=== PATIENT | female | born 1995 | race African-American/Black ===

== ENCOUNTER 2018-04-18 22:04 | Inpatient (IN) | payer MEDICAID ==
[~2018-04-18] VITALS: Ht 167.6 cm; Wt 95.8 kg
[2018-04-18] MEDS: LACTATED RINGERS 1,000 ML IV SCH (23:50)
[2018-04-19 00:18] LABS: CLARITY URINE CLEAR (CLEAR); COLOR URINE YELLOW (YELLOW); KETONES URINE NEGATIVE (NEGATIVE); LEUKOCYTE ESTERASE URINE 1+ (NEGATIVE); NITRITE URINE NEGATIVE (NEGATIVE); OCCULT BLOOD URINE NEGATIVE (NEGATIVE); PROTEIN URINE 2+ (NEGATIVE); SPECIFIC GRAVITY URINE 1.014 (1.005-1.030); UROBILINOGEN URINE 0.2 E.U./dL (0.2-1.0)
[2018-04-19] MEDS: LABETALOL HCL 20MG/4ML CARPUJECT IV SCH ×2 (00:24→01:05)
[2018-04-19 00:38] LABS: BASOPHILS % 0.6 % (0.0-2.0); EOSINOPHILS % 1.9 % (0.0-5.0); HEMATOCRIT. 30.1 % (36.0-48.0); HEMOGLOBIN. 9.9 g/dL (12.0-16.0); LYMPHOCYTES % 21.7 % (20.0-50.0); MEAN CORPUSCULAR HEMOGLOBIN 27.9 pg (28.0-32.0); MEAN CORPUSCULAR VOLUME 85.1 fL (81.0-99.0); NEUTROPHILS % 63.8 % (40.0-76.0); PLATELET 228 x1000/uL (130-400); RED BLOOD CELL COUNT 3.54 mill/uL (4.2-5.4); RED CELL DISTRIBUTION WIDTH 17.3 % (11.6-14.6)
[2018-04-19 00:41] LABS: *BARBITURATES SCREEN URINE NEGATIVE (NEGATIVE)
[2018-04-19 00:42] LABS: *AMPHETAMINES SCREEN URINE NEGATIVE (NEGATIVE); *BENZODIAZEPINES SCREEN URINE NEGATIVE (NEGATIVE); *COCAINE SCREEN URINE NEGATIVE (NEGATIVE); METHADONE URINE SCREEN NEGATIVE (NEGATIVE); OPIATES URINE SCREEN NEGATIVE (NEGATIVE)
[2018-04-19 00:43] LABS: CANNABINOID URINE SCREEN NEGATIVE (NEGATIVE); PHENCYCLIDINE URINE SCREEN NEGATIVE (NEGATIVE)
[2018-04-19 00:48] LABS: CHLORIDE 107 mEq/L (98-107)
[2018-04-19 00:58] LABS: D-DIMER 2.19 mg/L FEU (<0.50); PARTIAL THROMBOPLASTIN TIME 28.7 sec (23.4-31.0); PROTHROMBIN TIME 10.1 sec (9.1-11.1)
[2018-04-19] MEDS ORDERED: ACETAMINOPHEN 500MG TABLET PO ONE (02:00)
[2018-04-19] MEDS ORDERED: MAGNESIUM 4 G PREMIX 100 ML IV ONE (02:00)
[2018-04-19] MEDS ORDERED: AMPICILLIN 2,000 MG in SODIUM CHLORIDE 0.9% 100 ML IV SCH (02:30)
[2018-04-19] MEDS: LACTATED RINGERS 1,000 ML IV SCH ×3 (02:49→23:55)
[2018-04-19] MEDS: BETAMETHASONE ACET/BETAMET 30 MG/5 ML VIAL IM SCH (03:13)
[2018-04-19] MEDS ORDERED: LABETALOL HCL 20MG/4ML CARPUJECT IV ONE (03:30)
[2018-04-19] MEDS ORDERED: ONDANSETRON HCL 4MG/2ML INJ IM ONE (03:30)
[2018-04-19] MEDS: MAGNESIUM 20 G PREMIX (L & D) 500 ML IV SCH ×2 (06:14→13:18)
[2018-04-19 07:10] LABS: HEPATITIS B SURFACE ANTIGEN NEGATIVE; RUBELLA IGG 122.6 IU/mL (4.99-10)
[2018-04-19] MEDS ORDERED: VALACYCLOVIR HCL 500MG TABLET PO SCH (09:00)
[2018-04-19] MEDS: AMPICILLIN 1,000 MG in SODIUM CHLORIDE 0.9% 50 ML IV SCH ×3 (11:36→23:55)
[2018-04-19] MEDS: LABETALOL HCL 100MG TABLET PO SCH (14:23)
[2018-04-19 18:12] LABS: BASOPHILS % 0.1 % (0.0-2.0); HEMATOCRIT. 30.3 % (36.0-48.0); HEMOGLOBIN. 9.7 g/dL (12.0-16.0); LYMPHOCYTES % 7.7 % (20.0-50.0); MEAN CORPUSCULAR HEMOGLOBIN 27.2 pg (28.0-32.0); MEAN PLATELET VOLUME 9.5 fl (7.4-10.4); NEUTROPHILS % 87.2 % (40.0-76.0); PLATELET 243 x1000/uL (130-400); RED BLOOD CELL COUNT 3.56 mill/uL (4.2-5.4); RED CELL DISTRIBUTION WIDTH 17.3 % (11.6-14.6)
[2018-04-19 18:18] LABS: CHLORIDE 106 mEq/L (98-107)
[2018-04-19 18:23] LABS: D-DIMER 1.84 mg/L FEU (<0.50); INR 0.9; PARTIAL THROMBOPLASTIN TIME 24.4 sec (23.4-31.0); PROTHROMBIN TIME 9.4 sec (9.1-11.1)
[2018-04-20] MEDS: LABETALOL HCL 100MG TABLET PO SCH ×3 (00:10→21:42)
[2018-04-20] MEDS: BETAMETHASONE ACET/BETAMET 30 MG/5 ML VIAL IM SCH (03:22)
[2018-04-20] MEDS: AMPICILLIN 1,000 MG in SODIUM CHLORIDE 0.9% 50 ML IV SCH ×2 (05:23→11:35)
[2018-04-20] MEDS: MAGNESIUM 20 G PREMIX (L & D) 500 ML IV SCH ×2 (10:29)
[2018-04-20] MEDS: LACTATED RINGERS 1,000 ML IV SCH (12:47)
[2018-04-20 20:15] VITALS: BP 176/98
[2018-04-20 21:42] VITALS: BP 180/87
[2018-04-21] VITALS (23 sets, daily range): BP systolic 120–192; BP diastolic 73–106
[2018-04-21] MEDS ORDERED: NIFEDIPINE 10MG CAPSULE PO NR ×2 (00:30→22:15)
[2018-04-21] MEDS: LABETALOL HCL 100MG TABLET PO SCH ×2 (08:37→21:11)
[2018-04-21] MEDS: ACETAMINOPHEN 325MG TABLET PO PRN ×2 (13:29→21:12)
[2018-04-21] MEDS ORDERED: ACETAMINOPHEN 325MG TABLET PO NR (15:30)
[2018-04-21 19:36] LABS: BASOPHILS % 0.3 % (0.0-2.0); EOSINOPHILS % 0.6 % (0.0-5.0); HEMATOCRIT. 29.4 % (36.0-48.0); HEMOGLOBIN. 9.3 g/dL (12.0-16.0); LYMPHOCYTES % 15.7 % (20.0-50.0); MEAN CORPUSCULAR HEMOGLOBIN 27.3 pg (28.0-32.0); MEAN CORPUSCULAR VOLUME 86.1 fL (81.0-99.0); MEAN PLATELET VOLUME 9.5 fl (7.4-10.4); MONOCYTES % 12.4 % (2.0-8.0); PLATELET 254 x1000/uL (130-400); RED BLOOD CELL COUNT 3.42 mill/uL (4.2-5.4); RED CELL DISTRIBUTION WIDTH 17.3 % (11.6-14.6)
[2018-04-21 19:40] LABS: CHLORIDE 108 mEq/L (98-107)
[2018-04-21] MEDS: MAGNESIUM 20 G PREMIX (L & D) 500 ML IV SCH (23:47)
[2018-04-22] MEDS: MAGNESIUM 20 G PREMIX (L & D) 500 ML IV SCH ×2 (08:06→18:13)
[2018-04-22] MEDS: LABETALOL HCL 100MG TABLET PO SCH ×2 (10:50→22:06)
[2018-04-22] MEDS: LACTATED RINGERS 1,000 ML IV SCH (12:56)
[2018-04-22] MEDS ORDERED: NIFEDIPINE 10MG CAPSULE PO NR (13:15)
[2018-04-22] MEDS ORDERED: DINOPROSTONE 10MG VAGINAL INSERT VG ONE (14:15)
[2018-04-23] MEDS: LACTATED RINGERS 1,000 ML IV SCH ×3 (02:55→16:23)
[2018-04-23] MEDS: MAGNESIUM 20 G PREMIX (L & D) 500 ML IV SCH ×2 (04:33→14:25)
[2018-04-23] MEDS: MISOPROSTOL 100MCG TABLET VG PRN ×4 (09:34→22:21)
[2018-04-23] MEDS: LABETALOL HCL 100MG TABLET PO SCH ×2 (09:36→22:21)
[2018-04-24] MEDS: MISOPROSTOL 100MCG TABLET VG PRN ×5 (02:00→22:40)
[2018-04-24] MEDS: MAGNESIUM 20 G PREMIX (L & D) 500 ML IV SCH ×3 (04:26→21:35)
[2018-04-24] MEDS: LACTATED RINGERS 1,000 ML IV SCH (05:54)
[2018-04-24] MEDS: LABETALOL HCL 100MG TABLET PO SCH ×2 (09:00→22:40)
[2018-04-24 17:53] LABS: HEMATOCRIT 33.1 % (36.0-48.0); HEMOGLOBIN 10.5 g/dL (12.0-16.0); MEAN CORPUSCULAR HEMOGLOBIN 26.9 pg (28.0-32.0); MEAN CORPUSCULAR VOLUME 84.6 fL (81.0-99.0); PLATELET 299 x1000/uL (130-400); RED BLOOD CELL COUNT 3.91 mill/uL (4.2-5.4); RED CELL DISTRIBUTION WIDTH 17.2 % (11.6-14.6)
[2018-04-24 17:58] LABS: INR 0.9; PARTIAL THROMBOPLASTIN TIME 28.9 sec (23.4-31.0); PROTHROMBIN TIME 9.2 sec (9.1-11.1)
[2018-04-25] MEDS: MISOPROSTOL 100MCG TABLET VG PRN (07:14)
[2018-04-25] MEDS: MAGNESIUM 20 G PREMIX (L & D) 500 ML IV SCH ×2 (07:31→17:56)
[2018-04-25] MEDS: LACTATED RINGERS 1,000 ML IV SCH ×2 (09:40→12:20)
[2018-04-25] MEDS: LABETALOL HCL 100MG TABLET PO SCH ×3 (09:41→21:47)
[2018-04-25] MEDS ORDERED: DEXT 5%/LR + PITOCIN 20UNITS/L 1,000 ML IV SCH (10:15)
[2018-04-25] MEDS ORDERED: NALOXONE HCL 0.4 MG/ML 1ML VIAL IM PRN (10:15)
[2018-04-25] MEDS ORDERED: CARBOPROST TROMETHAMINE 250 MCG/ML AMPUL IM PRN (10:15)
[2018-04-25] MEDS ORDERED: BUPIVACAINE HCL/NS/PF EPIDURAL 100 ML EP ONE ×2 (10:54→18:13)
[2018-04-25] MEDS ORDERED: BUPIVACAINE HCL/PF 0.25% (2.5MG/ML) 10ML ONE (10:54)
[2018-04-25] MEDS ORDERED: FENTANYL CITRATE/PF 50MCG/ML 2ML VIAL ONE ×2 (10:55→18:13)
[2018-04-25] MEDS ORDERED: BUPIVACAINE HCL/NS/PF EPIDURAL 100 ML EP SCH (11:15)
[2018-04-25 11:22] LABS: BASOPHILS % 0.3 % (0.0-2.0); EOSINOPHILS % 1.1 % (0.0-5.0); HEMATOCRIT. 32.1 % (36.0-48.0); HEMOGLOBIN. 10.2 g/dL (12.0-16.0); LYMPHOCYTES % 13.1 % (20.0-50.0); MEAN CORPUSCULAR HEMOGLOBIN 26.8 pg (28.0-32.0); MEAN CORPUSCULAR VOLUME 84.7 fL (81.0-99.0); MEAN PLATELET VOLUME 9.3 fl (7.4-10.4); MONOCYTES % 12.4 % (2.0-8.0); NEUTROPHILS % 73.1 % (40.0-76.0); PLATELET 296 x1000/uL (130-400); RED BLOOD CELL COUNT 3.79 mill/uL (4.2-5.4); RED CELL DISTRIBUTION WIDTH 17.3 % (11.6-14.6)
[2018-04-25 11:31] LABS: INR 0.9; PARTIAL THROMBOPLASTIN TIME 28.4 sec (23.4-31.0)
[2018-04-25] MEDS ORDERED: HYDRALAZINE 20MG/ML VIAL IV NR (14:30)
[2018-04-25] MEDS ORDERED: LIDOCAINE HCL/PF 2% 20MG/ML 5 ML/VIAL ONE ×2 (19:31→21:42)
[2018-04-26] MEDS ORDERED: BUPIVACAINE HCL/NS/PF EPIDURAL 100 ML EP ONE ×3 (00:32→14:38)
[2018-04-26] MEDS ORDERED: LIDOCAINE HCL/PF 2% 20MG/ML 5 ML/VIAL ONE ×5 (00:32→14:38)
[2018-04-26] MEDS ORDERED: FENTANYL CITRATE/PF 50MCG/ML 2ML VIAL ONE ×3 (00:33→14:38)
[2018-04-26] MEDS: LACTATED RINGERS 1,000 ML IV SCH (05:59)
[2018-04-26] MEDS ORDERED: PENICILLIN G POTASSIUM 5 MMU in DEXT 5% WATER 100 ML IV SCH (09:30)
[2018-04-26] MEDS: LABETALOL HCL 100MG TABLET PO SCH ×2 (10:02→21:09)
[2018-04-26] MEDS ORDERED: PENICILLIN G POTASSIUM 2.5 MMU in DEXTROSE 5% WATER 50 ML IV SCH (13:30)
[2018-04-26] MEDS: MAGNESIUM 20 G PREMIX (L & D) 500 ML IV SCH (14:19)
[2018-04-26] MEDS: DEXT 5%/LR + PITOCIN 20UNITS/L 1,000 ML IV SCH (16:26)
[2018-04-26] MEDS ORDERED: IBUPROFEN 800MG TABLET PO PRN (16:45)
[2018-04-26] MEDS ORDERED: ACETAMINOPHEN WITH CODEINE 300/30MG TABLET PO PRN (16:45)
[2018-04-26] MEDS ORDERED: GLYCERIN/WITCH HAZEL LEAF MEDICATED PAD TOP PRN (16:45)
[2018-04-26] MEDS ORDERED: TETANUS, DIPHTHERIA, PERTUSSIS VAC/PF 0.5ML (>7YR OLD) IM ONE (16:45)
[2018-04-26] MEDS ORDERED: DIPHENHYDRAMINE 25MG CAPSULE PO PRN (16:45)
[2018-04-26] MEDS ORDERED: LANOLIN OINT 0.25 GM TUBE TOP PRN (16:45)
[2018-04-26] MEDS ORDERED: RHO(D) IMMUNE GLOBULIN 300 MCG/SYR IM PRN (16:45)
[2018-04-26] MEDS ORDERED: IBUPROFEN 400MG TABLET PO PRN (16:45)
[2018-04-26] MEDS ORDERED: BENZOCAINE/LANOLIN/ALOE VERA SPRAY TOP PRN (16:45)
[2018-04-26] MEDS ORDERED: MAGNESIUM 20 G PREMIX (L & D) 500 ML IV SCH (17:14)
[2018-04-26] MEDS ORDERED: MISOPROSTOL 200MCG TABLET RC NR (17:22)
[2018-04-26] MEDS ORDERED: GENTAMICIN SULFATE 150 MG in SODIUM CHLORIDE 0.9% 100 ML IV NR (18:00)
[2018-04-26 18:03] LABS: HEMATOCRIT. 28.2 % (36.0-48.0); HEMOGLOBIN. 9.1 g/dL (12.0-16.0); MEAN CORPUSCULAR HEMOGLOBIN 27.1 pg (28.0-32.0); MEAN CORPUSCULAR VOLUME 83.8 fL (81.0-99.0); MEAN PLATELET VOLUME 9.1 fl (7.4-10.4); PLATELET 259 x1000/uL (130-400); RED BLOOD CELL COUNT 3.36 mill/uL (4.2-5.4); RED CELL DISTRIBUTION WIDTH 17.9 % (11.6-14.6)
[2018-04-26] MEDS: AMPICILLIN 2,000 MG in SODIUM CHLORIDE 0.9% 100 ML IV SCH (18:19)
[2018-04-26 18:53] LABS: PLATELET ESTIMATE NORMAL
[2018-04-26 18:54] VITALS: BP 144/94
[2018-04-26 20:00] VITALS: BP 143/90
[2018-04-26] MEDS: DOCUSATE SODIUM 100MG CAPSULE PO SCH (21:09)
[2018-04-27] VITALS (8 sets, daily range): BP systolic 119–150; BP diastolic 77–97
[2018-04-27] MEDS: AMPICILLIN 2,000 MG in SODIUM CHLORIDE 0.9% 100 ML IV SCH ×4 (00:35→19:08)
[2018-04-27] MEDS: DEXT 5%/LR + PITOCIN 20UNITS/L 1,000 ML IV SCH ×4 (01:26→16:39)
[2018-04-27] MEDS: GENTAMICIN 120MG PREMIX 100 ML IV SCH ×3 (01:58→17:30)
[2018-04-27] MEDS: MAGNESIUM 20 G PREMIX (L & D) 500 ML IV SCH (03:31)
[2018-04-27 06:50] LABS: BASOPHILS % 0.3 % (0.0-2.0); EOSINOPHILS % 0.8 % (0.0-5.0); HEMATOCRIT. 25.1 % (36.0-48.0); HEMOGLOBIN. 8.1 g/dL (12.0-16.0); LYMPHOCYTES % 10.1 % (20.0-50.0); MEAN CORPUSCULAR HEMOGLOBIN 27.5 pg (28.0-32.0); MEAN CORPUSCULAR VOLUME 84.9 fL (81.0-99.0); MEAN PLATELET VOLUME 9.3 fl (7.4-10.4); MONOCYTES % 8.3 % (2.0-8.0); NEUTROPHILS % 80.5 % (40.0-76.0); PLATELET 246 x1000/uL (130-400); RED BLOOD CELL COUNT 2.96 mill/uL (4.2-5.4); RED CELL DISTRIBUTION WIDTH 17.3 % (11.6-14.6)
[2018-04-27 07:29] LABS: CHLORIDE 106 mEq/L (98-107)
[2018-04-27] MEDS: LABETALOL HCL 100MG TABLET PO SCH ×2 (09:00→21:30)
[2018-04-27] MEDS: PRENATAL VIT/FE FUMARATE/FA TABLET PO SCH (09:21)
[2018-04-27] MEDS: FERROUS SULFATE 325MG TABLET PO SCH ×2 (13:33→17:30)
[2018-04-27] MEDS: DOCUSATE SODIUM 100MG CAPSULE PO SCH (21:30)
[2018-04-28] MEDS: AMPICILLIN 2,000 MG in SODIUM CHLORIDE 0.9% 100 ML IV SCH ×2 (00:04→05:47)
[2018-04-28] MEDS: GENTAMICIN 120MG PREMIX 100 ML IV SCH ×2 (01:10→09:59)
[2018-04-28 04:00] VITALS: BP 114/66
[2018-04-28] MEDS: FERROUS SULFATE 325MG TABLET PO SCH (07:40)
[2018-04-28 08:00] VITALS: BP 133/77
[2018-04-28] MEDS: PRENATAL VIT/FE FUMARATE/FA TABLET PO SCH (09:12)
[2018-04-28] MEDS: LABETALOL HCL 100MG TABLET PO SCH (09:13)
[2018-04-28 11:11] VITALS: BP 133/77
[2018-04-28] MEDS ORDERED: MEDROXYPROGESTERONE ACETATE 150MG/ML VIAL IM NR (11:30)
[2018-04-28 12:00] VITALS: BP 125/71
[2018-04-28] MEDS ORDERED: MISOPROSTOL 200MCG TABLET ONE (13:46)
== END 2018-04-28 12:55 | disposition home or self-care (01) | DRG 560 ==
LOC: L&D 22:04 → 7EST PP/OB 04-20 20:01 → OBSVTOIN 04-20 20:15 → L&D 04-21 23:05 → 8WST 04-26 19:10
PROVIDERS: ADMIT Obstetrics & Gynecology; ATTEND Obstetrics & Gynecology
PROC: 10E0XZZ Delivery of Products of Conception, External Approach (ICD-10-PCS; principal; 2018-04-26 16:21)
DX: O13.4 Gestational [pregnancy-induced] hypertension without significant proteinuria, complicating childbirth (principal); D64.9 Anemia, unspecified; Z37.0 Single live birth; O99.02 Anemia complicating childbirth; O76 Abnormality in fetal heart rate and rhythm complicating labor and delivery; Z3A.32 32 weeks gestation of pregnancy; O69.81X0 Labor and delivery complicated by cord around neck, without compression, not applicable or unspecified
CPT/HCPCS: 36415; 76805; 76815; 76818; 80053; 80170; 80305; 81003; 82575; 83735; 84156; 84550; 85025; 85027; 85379; 85384; 85610; 85730; 86592; 86703; 86762; 86850; 86900; 87070; 87106; 87205; 87340; C1893; G0378; J0290; J0360; J0702; J1050; J1580; J2540; J2590; J3010; J3475; J3490; J7050; J7060; J7120; A4315

== ENCOUNTER 2019-05-11 00:55 | Emergency (ER) | payer MEDICAID ==
[~2019-05-11] VITALS: Ht 167.6 cm; Wt 91.0 kg
[2019-05-11 02:02] VITALS: BP 115/61
== END 2019-05-11 02:05 | disposition home or self-care (01) ==
LOC: ER 00:55
DX: H65.91 Unspecified nonsuppurative otitis media, right ear (principal); R09.81 Nasal congestion; R09.89 Other specified symptoms and signs involving the circulatory and respiratory systems
CPT/HCPCS: 99283

== ENCOUNTER 2019-05-24 18:08 | Observation (INO) | payer MEDICAID ==
[2019-05-24 20:14] LABS: CLARITY URINE CLEAR (CLEAR); COLOR URINE YELLOW (YELLOW); KETONES URINE NEGATIVE (NEGATIVE); LEUKOCYTE ESTERASE URINE NEGATIVE (NEGATIVE); NITRITE URINE NEGATIVE (NEGATIVE); OCCULT BLOOD URINE NEGATIVE (NEGATIVE); PH URINE 6.5 (4.5-8.0); PROTEIN URINE NEGATIVE (NEGATIVE); SPECIFIC GRAVITY URINE 1.011 (1.005-1.030); UROBILINOGEN URINE 0.2 E.U./dL (0.2-1.0)
[2019-05-24] MEDS ORDERED: LACTATED RINGERS 1,000 ML IV SCH (20:15)
[2019-05-24] MEDS ORDERED: ACETAMINOPHEN 500MG TABLET PO NR (20:45)
== END 2019-05-24 21:36 | disposition home or self-care (01) ==
LOC: 8 EST LDRP 18:08
PROVIDERS: ADMIT Specialist; ATTEND Specialist
DX: O26.892 Other specified pregnancy related conditions, second trimester (principal); R51 Headache; R42 Dizziness and giddiness; R11.0 Nausea; Z3A.21 21 weeks gestation of pregnancy
CPT/HCPCS: 81003; 99281; G0378; 96360; 96361

== ENCOUNTER 2019-07-25 19:52 | Observation (INO) | payer MEDICAID ==
[~2019-07-25] VITALS: Ht 167.6 cm; Wt 96.2 kg
[2019-07-25] MEDS ORDERED: PNV1TABL50 PO ×2 (20:42→22:38)
[2019-07-25] MEDS ORDERED: LACTATED RINGERS 1,000 ML IV SCH (20:45)
[2019-07-25] MEDS ORDERED: OSELTAMIVIR 75MG CAPSULE PO NR (20:45)
== END 2019-07-25 23:00 | disposition home or self-care (01) ==
LOC: 8 EST LDRP 19:52
PROVIDERS: ADMIT Obstetrics & Gynecology; ATTEND Obstetrics & Gynecology
DX: O26.893 Other specified pregnancy related conditions, third trimester (principal); R10.30 Lower abdominal pain, unspecified; M54.5 Low back pain; Z3A.29 29 weeks gestation of pregnancy
CPT/HCPCS: 99281; G0378; 96360; 96361

== ENCOUNTER 2019-09-14 21:11 | Observation (INO) | payer BC, MEDICAID ==
[~2019-09-14] VITALS: Ht 167.6 cm; Wt 100.7 kg
[~2019-09-14 21:11] MED LIST: PNV1TABL50 PO
[2019-09-14] MEDS ORDERED: LACTATED RINGERS 1,000 ML IV SCH (21:55)
[2019-09-14] MEDS ORDERED: ACETAMINOPHEN 325MG TABLET PO NR (22:00)
== END 2019-09-14 23:53 | disposition home or self-care (01) ==
LOC: ER 21:11 → 8 EST LDRP 21:24
PROVIDERS: ADMIT Specialist; ATTEND Specialist
DX: O62.9 Abnormality of forces of labor, unspecified (principal); O26.893 Other specified pregnancy related conditions, third trimester; R42 Dizziness and giddiness; R51 Headache; Z3A.37 37 weeks gestation of pregnancy
CPT/HCPCS: 96360; 99281; G0378

== ENCOUNTER 2020-03-22 13:00 | Emergency (ER) | payer MEDICAID, OTHER ==
[~2020-03-22] VITALS: Ht 167.6 cm; Wt 90.0 kg
[2020-03-22] MEDS ORDERED: TRAMADOL 50MG TABLET PO ONE (14:30)
[2020-03-22 15:30] VITALS: BP 111/67
== END 2020-03-22 15:32 | disposition home or self-care (01) ==
LOC: ER 13:28
DX: S60.211A Contusion of right wrist, initial encounter (principal); S60.221A Contusion of right hand, initial encounter; X58.XXXA Exposure to other specified factors, initial encounter; Y93.89 Activity, other specified; Y92.89 Other specified places as the place of occurrence of the external cause; Y99.8 Other external cause status
CPT/HCPCS: 73100; 73120; 81025; 99284

== ENCOUNTER 2020-06-04 20:07 | Emergency (ER) | payer MEDICAID, OTHER ==
[~2020-06-04] VITALS: Ht 167.6 cm; Wt 86.0 kg
[2020-06-04 20:24] VITALS: BP 125/80
== END 2020-06-04 21:28 | disposition home or self-care (01) ==
LOC: ER 20:07
DX: S06.0X9A Concussion with loss of consciousness of unspecified duration, initial encounter (principal); S16.1XXA Strain of muscle, fascia and tendon at neck level, initial encounter; Y08.89XA Assault by other specified means, initial encounter; Y07.01 Husband, perpetrator of maltreatment and neglect; Y93.89 Activity, other specified; Y92.018 Other place in single-family (private) house as the place of occurrence of the external cause
CPT/HCPCS: 81025; 99282